=== PATIENT | male | born 1960 | race Caucasian/White ===

== ENCOUNTER 2020-03-16 15:54 | Emergency (ER) | payer BC ==
[2020-03-16 16:36] VITALS: BP 123/67; PULSE 84; O2SAT 94
[2020-03-16] MEDS ORDERED: XYLOCAINE 1%/Epi 1:100000 MDV 20 ML ONE (16:39)
[2020-03-16] MEDS ORDERED: TENIVAC VIAL IM ONE ×2 (16:52→16:56)
--- NOTE | 2020-03-16 17:12 | ERPHSYRPT ---
- History of Present Illness Time Seen by Provider: 03/16/20 16:16 Source: patient Exam Limitations: no limitations Patient Subjective Stated Complaint: Laceration Triage Nursing Assessment: Patient ambulated back to ED and transferred self to bed. Patient A+O x3. Patient's skin pink, warm and dry. Patient states he was using a table saw when it kicked back and cut his lower right arm causing a 4cm X 1cm laceration. Patient states the pain is constant aching pain 4/10. Physician History: Patient is here with laceration to his right forearm. Occurred just prior to arrival. Patient was using a saw at home. States the saw kicked back. Now has a laceration to his right forearm. He is unsure of his last tetanus shot. He has no other falls or trauma. No foreign body sensation. 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 Modifying factors/associated signs and symptoms: none tried Timing/Duration: today Severity: moderate Allergies/Adverse Reactions: Penicillins Allergy (Intermediate, Verified 03/16/20 16:29) Rash Home Medications: Aspirin EC 325 mg [Ecotrin 325 MG] 325 mg PO DAILY 04/08/13 [History] Atorvastatin Calcium [Lipitor] 10 mg PO DAILY 04/08/13 [History] Escitalopram Oxalate 10 mg [Lexapro 10 MG] 10 mg PO DAILY 04/08/13 [History] Metformin HCl 500 mg [Glucophage 500 MG] 500 mg PO BID 04/08/13 [History] Calion-3 Fatty Acids/Fish Oil [Fish Oil 1,000 mg Capsule] 1,000 mg PO BID [History] Tamsulosin HCl 0.4 mg [Flomax 0.4 MG] 0.4 mg PO DAILY 10/30/15 [History] Hx Tetanus, Diphtheria Vaccination/Date Given: Yes Hx Influenza Vaccination/Date Given: Yes Hx Pneumococcal Vaccination/Date Given: Yes Immunizations Up to Date: Yes Travel Risk - International Travel Have you traveled outside of the country in past 3 weeks: No Have you or anyone close to you been diagnosed with or: No Do your reside in a community with a known COVID-19 case?: Yes If Yes where:: [facility] - Coronavirus Screening Has patient experienced Coronavirus symptoms: No - Review of Systems Constitutional: No Fever, No Chills Eyes: No Symptoms Ears, Nose, & Throat: No Symptoms Respiratory: No Cough, No Dyspnea Cardiac: No Chest Pain, No Edema, No Syncope Abdominal/Gastrointestinal: No Abdominal Pain, No Nausea, No Vomiting, No Diarrhea Genitourinary Symptoms: No Dysuria Musculoskeletal: Other (right forearm laceration), No Back Pain, No Neck Pain Skin: No Rash Neurological: No Dizziness, No Focal Weakness, No Sensory Changes Psychological: No Symptoms Endocrine: No Symptoms All Other Systems: Reviewed and Negative - Past Medical History Pertinent Past Medical History: Yes Neurological History: Migraines ENT History: No Pertinent History Cardiac History: Aneurysm, High Cholesterol, Other Respiratory History: No Pertinent History Endocrine Medical History: Diabetes Type II Musculoskeletal History: Arthritis GI Medical History: Diverticulitis, Hemorrhoids History: No Pertinent History Psycho-Social History: Depression Male Reproductive Disorders: Prostate Problems - Past Surgical History Past Surgical History: Yes Neuro Surgical History: No Pertinent History Cardiac: Other Respiratory: No Pertinent History Gastrointestinal: Other Musculoskeletal: Orthopedic Surgery Male Surgical History: No Pertinent History Other Surgical History: rt knee replaced,right hand josh removal,right arthroscopy with tear repair,cardiac stress and sonogram-states has a aneyrsm above heart and two at abd.(Dr Reddy),T&A - Social History Smoking Status: Never smoker Exposure to second hand smoke: No Drug Use: none Patient Lives Alone: No - Nursing Vital Signs Nursing Vital Signs: Initial Vital Signs Temperature 97.9 F 03/16/20 16:30 Pulse Rate 84 03/16/20 16:30 Respiratory Rate 18 03/16/20 16:30 Blood Pressure 123/67 03/16/20 16:30 O2 Sat by Pulse Oximetry 94 L 03/16/20 16:30 Pain Scale Pain Intensity 4 - Physical Exam General Appearance: no apparent distress, alert Eye Exam: PERRL/EOMI, eyes nml inspection Ears, Nose, Throat Exam: normal ENT inspection, TMs normal, pharynx normal, moist mucous membranes Neck Exam: normal inspection, non-tender, supple, full range of motion Respiratory Exam: normal breath sounds, lungs clear, No respiratory distress Cardiovascular Exam: regular rate/rhythm, normal heart sounds, normal peripheral pulses Gastrointestinal/Abdomen Exam: soft, normal bowel sounds, No tenderness, No mass Back Exam: normal inspection, normal range of motion, No CVA tenderness, No vertebral tenderness Extremity Exam: normal inspection, normal range of motion, pelvis stable Neurologic Exam: alert, oriented x 3, cooperative, normal mood/affect, nml cerebellar function, nml station & gait, sensation nml, No motor deficits Skin Exam: normal color, warm, dry, No rash Lymphatic Exam: No adenopathy SpO2 Interpretation: normal SpO2: 94 Comments: 03/16/20 17:12 Right forearm laceration. 5 cm. No obvious deformity, sensation intact, 2+ capillary refill, 2 point tactile discrimination intact. 5 out of 5 strength. Full range of motion without pain. Compartments are soft, nontender. Overlying skin shows no tenting, bruising, ecchymosis. Procedures - Laceration/Wound Repair Arm Wound Location: Right Wound's Depth, Shape: linear Wound Explored: clean Irrigated: No Hibiclens Prep: No Anesthesia: 1% Lidocaine Wound Debrided: minimal Wound Repaired With: sutures Suture Size/Type: 4-0 Number of Sutures: 9 Layer Closure?: No Sterile Dressing Applied?: Yes Ordered Tests: Active Orders 24 hr Category Date Time Status FOREARM Stat Exams 03/16/20 17:09 Taken Medication Summary Discontinued Medications Generic Name Dose Route Start Last Admin Trade Name Ken PRN Reason Stop Dose Admin Lidocaine/Epinephrine Confirm 03/16/20 16:39 Xylocaine 1%/Epi [id number] Mdv 20 Ml Administered 03/16/20 16:40 Dose 5 ml .ROUTE .STK-MED ONE Tetanus/Diphtheria Toxoids Adsorbed 0.5 ml 03/16/20 16:52 03/16/20 16:56 Tenivac Vial IM 03/16/20 16:53 0.5 ml .ONCE ONE Administration Tetanus/Diphtheria Toxoids Adsorbed Confirm 03/16/20 16:56 Tenivac Vial Administered 03/16/20 16:57 Dose 0.5 ml IM .STK-MED ONE - Progress Progress: improved Progress Note: 03/16/20 17:12 We will obtain an x-ray, looking for foreign body. Laceration will be repaired. Lidocaine and numbness. Tetanus shot updated. See his note for full details. 03/16/20 18:59 Sutures were placed. See procedure note for full details. 9 sutures were placed. Patient will see his primary care physician for wound check next week. 7 to 10 days suture removal. Return here for new or changing symptoms. Patient sent home on clindamycin. Counseled pt/family regarding: diagnosis, need for follow-up, rad results - Departure Departure Disposition: Home Clinical Impression: Laceration of right forearm Condition: Stable Critical Care Time: No Referrals: RAMSEY PHIPPS [Primary Care Provider] - Instructions: Wound Care (DC) Additional Instructions: No showering for 24 hours. After that you can let water run over your laceration. See Dr. Phipps next week for a wound check. Take your antibiotics as prescribed. Sutures out in 7 to 10 days. Prescriptions: Clindamycin HCl 150 mg [Cleocin 150 mg Capsule] 2 cap PO QID #56 capsule
--- NOTE | 2020-03-17 08:28 | XRAY ---
Indication: Laceration. Comparison: None 2 view right forearm demonstrates distal laceration adjacent to the ulna and small incidental olecranon spur. No other bony, articular, or soft tissue abnormalities.
== END 2020-03-16 18:06 | disposition home or self-care (01) ==
LOC: ED 15:54
DX: S51.811A Laceration without foreign body of right forearm, initial encounter (principal); W45.8XXA Other foreign body or object entering through skin, initial encounter; W29.8XXA Contact with other powered hand tools and household machinery, initial encounter; Y93.89 Activity, other specified; Y92.89 Other specified places as the place of occurrence of the external cause; E11.9 Type 2 diabetes mellitus without complications; Z79.899 Other long term (current) drug therapy
CPT/HCPCS: 12002; 73090; 90471; 90714; 99283